=== PATIENT | female | born 1975 | race Caucasian/White ===

== ENCOUNTER 2017-02-08 12:17 | Emergency (ER) | payer OTHER ==
--- NOTE | 2017-02-08 13:29 | ED ORDER SUMMARY ---
..... Patient: GAVIN FORREST OrderSheet [facility] VisitID: [id number] [address] [place] [address] 41y, F Registration Date/Time: 02/08/2017 ORDER SHEET Weight: 100.2 kg (measured) Allergies: No Known Drug Allergy GENERAL ORDERS: MEDICATION ORDERS: Fluorescein Eye Strips 1 strips (NOW) (12:46 02/08/2017 Raeann Moore) (Ack 13:49 DDean R.N.) (14:04 EHassan R.N.) Proparacaine Eye Drops (Solution 0.5 %) 2 drops (place at bedside) (12:46 02/08/2017 Raeann Moore) (Ack 13:49 DDean R.N.) (13:58 EHassan R.N.) IV FLUIDS: ORDER SHEET NOTES: [Electronically signed by Micaela Javed R.N. (14:06 02/08/2017)] [Electronically signed by Gianni Chan Dr. (23:22 02/09/2017)] [Electronically locked/signed by Micaela Javed R.N. (14:06 02/08/2017)]
--- NOTE | 2017-02-08 13:29 | ED CLINICAL REPORT ---
Clinical Report - Physicians/Mid Levels [facility] [address] [place] [address] 02/08/2017 12:17 Patient: GAVIN FORREST Time Seen: 1245; initial patient contact. Arrived- By private vehicle. Historian- patient. HISTORY OF PRESENT ILLNESS Chief Complaint: EYE REDNESS and IRRITATION. This started yesterday, is characterized as severe and has been constant and is still present. The patient did not sustain an injury. This occurred at home. Not injured from contact lenses. No direct trauma to the eyes. No chemical exposure, suspected foreign body in eye or UV light exposure. Eye discomfort, burning, redness and discharge. No double vision, decreased vision or loss of vision. Patient also notes other injury (none). REVIEW OF SYSTEMS No fever. All systems otherwise negative, except as recorded above. PAST HISTORY See nurses notes. Tetanus immunization status is up-to-date. Medications: Omeprazole Oral. Allergies: No Known Drug Allergy. ADDITIONAL NOTES The nursing notes have been reviewed. PHYSICAL EXAM Vital Signs: 02/08/2017 12:45 BP: 120/84. HR: 78. RR: 16. O2 saturation: 98%. Temp: 98.2 F. Pain level now: 6/10. Appearance: Alert. HEENT: Ears normal. Nose normal. Pharynx normal. Head appears normal to external inspection. Eyes: Pupils equal, round and reactive to light. Accommodation normal. negative chani's sign. no dendritic pattern. no abrassions. no FB. normal lids, lashes, and lacrimals. bilateral conjunctival injection. Rt Eye: Pupil 3mm. Lt Eye: Pupil 3mm. Neck: Neck supple. Normal inspection. CVS: Normal heart rate and rhythm. Heart sounds normal. Respiratory: No respiratory distress. Breath sounds normal. Abdomen: Nontender. No organomegaly. : Normal genitalia. Skin: Skin rash (mild macular papular rash to the upper extremities. blanchable. slightly raised. does not involve the palms or soles. no MM involvement.). PROGRESS AND PROCEDURES Course of Care: THE patient is a pleasant 41-year-old female patient of revised irritation to the eyes bilaterally as well as a rash. Rash is located in the upper extremities. No signs of desquamation. Only one Mucous membrane visible. No concern for toxic epidermal necolysis or Sol Johnsons at this time. patient reports significant improvement with these symptoms while here in the emergency department. No signs of hypopyon or Iritis. Patient is nontoxic. No signs of anaphylaxis. Had a discussion with the patient in regards to neurolytic or and topical ophthalmic analgesia. Recommended patient only use this if absolutely neededgiven the risks and benefits of this medication. Patient is agreeable to treatment plan. We'll also have the patient on erythromycin eye ointment antibiotics. Patient is agreeable to the treatment and plan. Discussed with the patient workup here in emergency department: Diagnosis, home care, follow-up, and return precautions. QUESTIONS HAVE BEEN ANSWERED. THE PATIENT EXPRESSED UNDERSTANDING OF THESE INSTRUCTIONS AND WAS GIVEN TO THEM. Disposition: Discharged. Condition: good. CLINICAL IMPRESSION 02/08/2017 12:45 BP: 120/84. HR: 78. RR: 16. O2 saturation: 98%. Temp: 98.2 F. Pain level now: 6/10. Blood pressure normal. Oxygen saturation normal. Atopic conjunctivitis of the right eye and left eye. INSTRUCTIONS Warnings: GENERAL WARNINGS: Return or contact your physician immediately if your condition worsens or changes unexpectedly, if not improving as expected, or if other problems arise. Specifically return if pain, vomiting, bleeding, breathing difficulty or fever. Your Current Medications: CONTINUE TAKING THE FOLLOWING MEDICATIONS: Omeprazole Oral. Prescription Medications: Erythromycin ophthalmic ointment 0.5% : apply 0.5 inch to inner aspect of the lower lid on the affected eye every 4 hours while awake for 7 days. Dispense three and one half (3.5) grams. No refill. Follow-up: Return to the emergency department as needed. Follow up with your doctor in three days. Reason for referral: recheck today's concerns. Screening today revealed the patient's blood pressure to be in the normal range. The patient should follow up with a primary care provider for blood pressure management. Understanding of the discharge instructions verbalized by patient. Follow-up with: Kavita Velasquez MD, Ophthalmology, [facility], [address] [place] [address] - [address], [place] [address] Follow up in three days. Reason for referral: recheck today's concerns. Summary of care provided to patient via paper. (Electronically signed by Gianni Chan Dr. 02/09/2017 23:22)
--- NOTE | 2017-02-08 13:29 | ED CLINICAL REPORT ---
Clinical Report - Physicians/Mid Levels [facility] [address] [place] [address] 02/08/2017 12:17 Patient: GAVIN FORREST Time Seen: 1245; initial patient contact. Arrived- By private vehicle. Historian- patient. HISTORY OF PRESENT ILLNESS Chief Complaint: EYE REDNESS and IRRITATION. This started yesterday, is characterized as severe and has been constant and is still present. The patient did not sustain an injury. This occurred at home. Not injured from contact lenses. No direct trauma to the eyes. No chemical exposure, suspected foreign body in eye or UV light exposure. Eye discomfort, burning, redness and discharge. No double vision, decreased vision or loss of vision. Patient also notes other injury (none). REVIEW OF SYSTEMS No fever. All systems otherwise negative, except as recorded above. PAST HISTORY See nurses notes. Tetanus immunization status is up-to-date. Medications: Omeprazole Oral. Allergies: No Known Drug Allergy. ADDITIONAL NOTES The nursing notes have been reviewed. PHYSICAL EXAM Vital Signs: 02/08/2017 12:45 BP: 120/84. HR: 78. RR: 16. O2 saturation: 98%. Temp: 98.2 F. Pain level now: 6/10. Appearance: Alert. HEENT: Ears normal. Nose normal. Pharynx normal. Head appears normal to external inspection. Eyes: Pupils equal, round and reactive to light. Accommodation normal. negative chani's sign. no dendritic pattern. no abrassions. no FB. normal lids, lashes, and lacrimals. bilateral conjunctival injection. Rt Eye: Pupil 3mm. Lt Eye: Pupil 3mm. Neck: Neck supple. Normal inspection. CVS: Normal heart rate and rhythm. Heart sounds normal. Respiratory: No respiratory distress. Breath sounds normal. Abdomen: Nontender. No organomegaly. : Normal genitalia. Skin: Skin rash (mild macular papular rash to the upper extremities. blanchable. slightly raised. does not involve the palms or soles. no MM involvement.). PROGRESS AND PROCEDURES Course of Care: THE patient is a pleasant 41-year-old female patient of revised irritation to the eyes bilaterally as well as a rash. Rash is located in the upper extremities. No signs of desquamation. Only one Mucous membrane visible. No concern for toxic epidermal necolysis or Sol Johnsons at this time. patient reports significant improvement with these symptoms while here in the emergency department. No signs of hypopyon or Iritis. Patient is nontoxic. No signs of anaphylaxis. Had a discussion with the patient in regards to neurolytic or and topical ophthalmic analgesia. Recommended patient only use this if absolutely neededgiven the risks and benefits of this medication. Patient is agreeable to treatment plan. We'll also have the patient on erythromycin eye ointment antibiotics. Patient is agreeable to the treatment and plan. Discussed with the patient workup here in emergency department: Diagnosis, home care, follow-up, and return precautions. QUESTIONS HAVE BEEN ANSWERED. THE PATIENT EXPRESSED UNDERSTANDING OF THESE INSTRUCTIONS AND WAS GIVEN TO THEM. Disposition: Discharged. Condition: good. CLINICAL IMPRESSION 02/08/2017 12:45 BP: 120/84. HR: 78. RR: 16. O2 saturation: 98%. Temp: 98.2 F. Pain level now: 6/10. Blood pressure normal. Oxygen saturation normal. Atopic conjunctivitis of the right eye and left eye. INSTRUCTIONS Warnings: GENERAL WARNINGS: Return or contact your physician immediately if your condition worsens or changes unexpectedly, if not improving as expected, or if other problems arise. Specifically return if pain, vomiting, bleeding, breathing difficulty or fever. Your Current Medications: CONTINUE TAKING THE FOLLOWING MEDICATIONS: Omeprazole Oral. Prescription Medications: Erythromycin ophthalmic ointment 0.5% : apply 0.5 inch to inner aspect of the lower lid on the affected eye every 4 hours while awake for 7 days. Dispense three and one half (3.5) grams. No refill. Follow-up: Return to the emergency department as needed. Follow up with your doctor in three days. Reason for referral: recheck today's concerns. Screening today revealed the patient's blood pressure to be in the normal range. The patient should follow up with a primary care provider for blood pressure management. Understanding of the discharge instructions verbalized by patient. Follow-up with: Kavita Velasquez MD, Ophthalmology, [facility], [address] [place] [address] - [address], [place] [id number] Follow up in three days. Reason for referral: recheck today's concerns. Summary of care provided to patient via paper. (Electronically signed by Gianni Chan Dr. 02/09/2017 23:22)
--- NOTE | 2017-02-08 13:29 | ED NURSING NOTES ---
Clinical Report - Nurses [facility] [address] [place] [address] 02/08/2017 12:17 Patient: GAVIN FORREST TRIAGE Triage time 1245 PM. Acuity: LEVEL 5. Chief Complaint: REDNESS and PAIN TO RIGHT EYE. REDNESS and PAIN TO LEFT EYE. Alert. No acute distress. SEPSIS SCREEN: Sepsis Screen. Negative (no infection suspected/documented). VISUAL ACUITY: Visual acuity performed without corrective lenses: left eye 20/25; right eye 20/30; both eyes 20/30. --12:58 Micaela Javed R.N. 12:45 02/08/17. BP: 120/84 (regular adult cuff) taken on the left arm, while sitting. HR: 78. RR: 16. O2 saturation: 98% on room air. Temp: 98.2 F. Pain level now: 03/03. --12:58 Micaela Javed R.N. Weight: 100.2 kg measured. Height/Length: 61 inches Per Patient. BMI: 41.8. --12:45 Micaela Javed R.N. Medications Omeprazole Oral. --12:49 Micaela Javed R.N. Allergies No Known Drug Allergy. --12:49 Micaela Javed R.N. Medication/allergy information source: the patient. --12:58 Micaela Javed R.N. History Arrived by private vehicle. Historian: patient and family. Accompanied by family. Primary physician (None). ( Pt states yesterday morning felt her eyes were bothering her, almost like she had "sand in them" it progressively got worst with rash, around eyes and face, also admits to having drainage "green, yellowish color, moderate amount" Pt denies being exposed to anything or using new products. Denies fever, trouble breathing or swallowing.). This started yesterday. She did not sustain an injury. She has had eye discomfort, blurred vision and decreased vision. She has had moderate eye irritation involving the right eye and left eye. It has been associated with redness and discharge. She has had a moderate amount of thick, watery and yellow discharge from the right eye and left eye. Treatment AUDIOLOGY TECHNICIAN: None. PAST MEDICAL HX: Immunizations: up-to-date. SOCIAL HX: Smoker- current status unknown. Occasional alcohol use. No drug use. No infectious disease exposure. ABUSE ASSESSMENT: No report of abuse. SELF HARM ASSESSMENT: A self harm assessment was performed. The patient answered "no" to the question "Do you have thoughts of harming or killing yourself?" and "Have you recently had thoughts about harming or killing others?". FALL RISK ASSESSMENT: Fall risk assessment completed. No fall risk identified. NUTRITIONAL RISK ASSESSMENT: The nutritional risk assessment revealed no deficiencies. FUNCTIONAL ASSESSMENT: Functional assessment: no impairments noted. LEARNING NEEDS ASSESSMENT: The learning needs assessment revealed no barriers. SKIN INTEGRITY ASSESSMENT: Skin integrity risk assessment completed. No skin integrity risk identified. --12:58 Micaela Javed R.N. PROBLEMS: Muscle Strain, Lower Extremity. Abdominal Pain. Contusion. Gastroenteritis. Cellulitis. "back tumor benign". Endometriosis. Ovarian Cyst. Gastroesophageal Reflux Disease. Diabetes Mellitus. Corneal Abrasion. Lifestyle / Substance Problems. URI. Myofascial Strain. --12:50 Micaela Javed R.N. ADDITIONAL SURGERIES: Back Surgery. . Endoscopy. Hysterectomy. Laparoscopy. Oophorectomy. Previous Abdominal Surgery. Tonsillectomy. --12:50 Micaela Javed R.N. Interventions ID band on patient. --12:58 Micaela Javed R.N. PHYSICAL ASSESSMENT Ambulatory to room. GENERAL / NEURO / PSYCH: Not alert. Appears in pain. Pupillary exam: Right pupil 2mm, round and briskly reactive to light directly. Left pupil: 2mm, round and briskly reactive to light directly. HEENT: Photophobia present. Mouth inspection within normal limits. RESPIRATORY: Respirations not labored. CVS: Capillary refill less than 2 seconds. SKIN: Skin is warm and dry. Normal skin turgor. --12:59 Micaela Javed R.N. NURSING PROGRESS NOTES The initial plan of care for this patient has been created This plan of care was discussed with the patient. Reassurance given. Patient identifiers checked. Call light placed in reach. Side rails up. Patient ready for evaluation- ED physician notified. --12:59 Micaela Javed R.N. 13:33 02/08/2017 Proparacaine Eye Drops 2 drop given. Given in both eyes. Allergies verified and confirmed 5 rights. (Done by Dr. Morris). --13:58 Micaela Javed R.N. 13:39 02/08/2017 FLUORESCEIN Opth soln Opthalmic solution 1 Strip given. Given in the right eye and both eyes. Allergies verified and confirmed 5 rights. (DOne by Dr. Morris). --14:04 Micaela Javed R.N. DISPOSITION / DISCHARGE Departure time: 1405 PM. Condition at departure: improved and stable. The goals identified in the patient's plan of care were met. No learning barriers present. Discharge instructions provided and reviewed with the patient and parent. Reviewed medication(s) side effects, precautions, dosing and course information. Prescription(s) given to the patient. Treatments reviewed (eye care). Reviewed referral to an brood station manager for followup. Patient verbalized understanding. Written instructions provided in Portuguese. ( eye acuity did not change, pt states feeling "better"). The patient was discharged by the physician. She was discharged home and accompanied by parent. She left the Emergency Department ambulatory and via private vehicle. Parent driving. FALL RISK ASSESSMENT: Fall risk assessment completed. No fall risk identified. MIGUEL COMA SCORE: Miguel Coma Scale: 15- eyes open spontaneously (4); best verbal response- oriented x 4 (5); best motor response- obeys commands (6). --14:06 Micaela Javed R.N. 14:00 02/08/17. BP: 148/58. HR: 95. RR: 14. O2 saturation: 98% on room air. Temp: 98.3 F (oral). Pain level now: 01/01. --14:06 Micaela Javed R.N. Locked/Released at 02/08/2017 14:06 by Micaela Javed R.N.
--- NOTE | 2017-02-08 13:29 | ED ORDER SUMMARY ---
..... Patient: GAVIN FORREST OrderSheet [facility] [place] [facility] VisitID: [id number] [address] [place] [address] 41y, F Registration Date/Time: 02/08/2017 ORDER SHEET Weight: 100.2 kg (measured) Allergies: No Known Drug Allergy GENERAL ORDERS: MEDICATION ORDERS: Fluorescein Eye Strips 1 strips (NOW) (12:46 02/08/2017 Raeann Moore) (Ack 13:49 DDean R.N.) (14:04 EHassan R.N.) Proparacaine Eye Drops (Solution 0.5 %) 2 drops (place at bedside) (12:46 02/08/2017 Raeann Moore) (Ack 13:49 DDean R.N.) (13:58 EHassan R.N.) IV FLUIDS: ORDER SHEET NOTES: [Electronically signed by Micaela Javed R.N. (14:06 02/08/2017)] [Electronically signed by Gianni Chan Dr. (23:22 02/09/2017)] [Electronically locked/signed by Micaela Javed R.N. (14:06 02/08/2017)]
--- NOTE | 2017-02-09 23:22 | ED MAR SUMMARY ---
..... Medication Administration Record [facility] [address] [place] [address] Patient: GAVIN FORREST Visit ID: [id number] 41y, F Weight: 100.2 kg Height/Length: 61 in BMI: 41.8 ALLERGIES: No Known Drug Allergy Given 13:33 02/08/2017 Micaela Javed, R.N. Medication Administered: PROPARACAINE [EYE DROPS], Dose: 2 drop Eye Drops. Medication Ordered: Proparacaine Eye Drops (Solution 0.5 %) 2 drops (place at bedside). Given 13:39 02/08/2017 Micaela Javed, R.N. Medication Administered: FLUORESCEIN [EYE STRIPS], Dose: 1 Strip Opthalmic solution Opth soln. Medication Ordered: Fluorescein Eye Strips 1 strips (NOW).
--- NOTE | 2017-02-09 23:22 | ED DISCHARGE INSTRUCTIONS ---
Patient: GAVIN FORREST General Instructions [facility] VisitID: [id number] [address] [place] [id number] 41y, F Registration Date/Time: 02/08/2017 02/08/2017 12:45 BP: 120/84. HR: 78. RR: 16. O2 saturation: 98%. Temp: 98.2 F. Pain level now: 6/10. Blood pressure normal. Oxygen saturation normal. Atopic conjunctivitis of the right eye and left eye. INSTRUCTIONS Warnings: GENERAL WARNINGS: Return or contact your physician immediately if your condition worsens or changes unexpectedly, if not improving as expected, or if other problems arise. Specifically return if pain, vomiting, bleeding, breathing difficulty or fever. Your Current Medications: CONTINUE TAKING THE FOLLOWING MEDICATIONS: Omeprazole Oral. Prescription Medications: Erythromycin ophthalmic ointment 0.5% : apply 0.5 inch to inner aspect of the lower lid on the affected eye every 4 hours while awake for 7 days. Dispense three and one half (3.5) grams. No refill. Follow-up: Return to the emergency department as needed. Follow up with your doctor in three days. Reason for referral: recheck today's concerns. Screening today revealed the patient's blood pressure to be in the normal range. The patient should follow up with a primary care provider for blood pressure management. Understanding of the discharge instructions verbalized by patient. Follow-up with: Kavita Velasquez MD, Ophthalmology, [facility], [address] [place] [address] - [address] [address] Follow up in three days. Reason for referral: recheck today's concerns. Summary of care provided to patient via paper. ADDITIONAL INFORMATION Conjunctivitis, Allergic Allergic Conjunctivitis is a reaction to dust or pollen in the air. This causes itching and redness in the membranes of the eyelids. There may be swelling of the lids, redness, and a gritty or scratchy feeling in the eye. Home Care: Eye drops may be prescribed to reduce itching and redness. Use these as directed. Otherwise, Visine, Vasocon or other [id number] decongestant eye drops may be used. Apply a cool compress (towel soaked in cool water) to the affected eye 3-4 times a day to reduce swelling and itching. It is common to have mucus drainage during the night causing the eyelids to become crusted by morning. Use a warm wet cloth to wipe this away. You may also use saline irrigating solution or artificial tears to rinse away mucus inside the eye. Do not patch the eye. You may use acetaminophen (Tylenol) or ibuprofen (Motrin, Advil) to control pain, unless another medicine was prescribed. [ NOTE: If you have chronic liver or kidney disease or ever had a stomach ulcer or GI bleeding, talk with your doctor before using these medicines.] Do not wear contact lenses until your eyes have healed and all symptoms are gone. Follow Up with your doctor or this facility as directed, or if there has not been improvement within five days. Get Prompt Medical Attention if any of the following occur: Increased swelling of the eyelid New or worsening drainage from the eye Increasing redness around the eye Facial swelling Erythromycin Eye ointment What is this medicine? ERYTHROMYCIN (ananya gates) is a macrolide antibiotic. It is used to treat bacterial eye infections. It also prevents a certain type of eye infection that can occur in some babies. How should I use this medicine? This medicine is only for use in the eye. Follow the directions on the prescription label. Wash hands before and after use. Tilt your head back slightly and pull your lower eyelid down with your index finger to form a pouch. Try not to touch the tip of the tube, to your eye, fingertips, or any other surface. Squeeze the end of the tube to apply a thin layer of the ointment to the inside of the lower eyelid. Close the eye gently to spread the ointment. Your vision may blur for a few minutes. Use your doses at regular intervals. Do not use your medicine more often than directed. Finish the full course prescribed by your doctor or health home health caregiver even if you think your condition is better. Do not stop using except on the advice of your doctor or health home health caregiver. Talk to your cco & president regarding the use of this medicine in children. Special care may be needed. What side effects may I notice from receiving this medicine? Side effects that you should report to your doctor or health home health caregiver as soon as possible: allergic reactions like skin rash, itching or hives, swelling of the face, lips, or tongue burning, stinging, or itching of the eyes or eyelids changes in vision redness, swelling, or pain What may interact with this medicine? Interactions are not expected. Do not use any other eye products without telling your doctor or health home health caregiver. What if I miss a dose? If you miss a dose, use it as soon as you can. If it is almost time for your next dose, use only that dose. Do not use double or extra doses. Where should I keep my medicine? Keep out of the reach of children. Store at room temperature between 15 and 30 degrees C (59 and 86 degrees F). Do not freeze. Throw away any unused ointment after the expiration date. What should I tell my health care provider before I take this medicine? if you have an unusual or allergic reaction to erythromycin, foods, dyes, or preservatives or trying to get breast-feeding What should I watch for while using this medicine? Tell your doctor or health home health caregiver if your symptoms do not improve in 2 to 3 days. You have been given the following additional information: Conjunctivitis, Allergic Erythromycin Eye ointment (Electronically signed by Gianni Chan Dr. 02/09/2017 23:22)
--- NOTE | 2017-02-09 23:22 | ED MED RECONCILIATION SUMMARY ---
Patient: GAVIN FORREST Medication Reconciliation Report [facility] VisitID: [id number] [address] [place] [address] 41y, F Registration Date/Time: 02/08/2017 Weight: 100.2 kg Height/Length: 61 in. BMI: 41.8 ALLERGIES: No Known Drug Allergy The patient's Home Medications are listed below: CONTINUE TAKING THE FOLLOWING MEDICATIONS: Omeprazole Oral The source(s) of the original Home Medication information: patient The following Medications were given to the patient in the Emergency Department: Proparacaine [Eye Drops] Eye Drops 2 drop, administered: 02/08/2017 1:33:00 PM FLUORESCEIN [EYE STRIPS] Opth soln 1 Strip, administered: 02/08/2017 1:39:00 PM The following Medications were prescribed to the patient: Erythromycin ophthalmic ointment 0.5% : apply 0.5 inch to inner aspect of the lower lid on the affected eye every 4 hours while awake for 7 days. Dispense three and one half (3.5) grams. No refill. -- Gianni Chan Dr.
--- NOTE | 2017-02-09 23:22 | ED MED RECONCILIATION SUMMARY ---
Patient: GAVIN FORREST Medication Reconciliation Report [facility] VisitID: [id number] [address] [place] [address] 41y, F Registration Date/Time: 02/08/2017 Weight: 100.2 kg Height/Length: 61 in. BMI: 41.8 ALLERGIES: No Known Drug Allergy The patient's Home Medications are listed below: CONTINUE TAKING THE FOLLOWING MEDICATIONS: Omeprazole Oral The source(s) of the original Home Medication information: patient The following Medications were given to the patient in the Emergency Department: Proparacaine [Eye Drops] Eye Drops 2 drop, administered: 02/08/2017 1:33:00 PM FLUORESCEIN [EYE STRIPS] Opth soln 1 Strip, administered: 02/08/2017 1:39:00 PM The following Medications were prescribed to the patient: Erythromycin ophthalmic ointment 0.5% : apply 0.5 inch to inner aspect of the lower lid on the affected eye every 4 hours while awake for 7 days. Dispense three and one half (3.5) grams. No refill. -- Gianni Chan Dr.
--- NOTE | 2017-02-09 23:22 | ED DISCHARGE INSTRUCTIONS ---
Patient: GAVIN FORREST General Instructions [facility] VisitID: [id number] [address] [place] [id number] 41y, F Registration Date/Time: 02/08/2017 02/08/2017 12:45 BP: 120/84. HR: 78. RR: 16. O2 saturation: 98%. Temp: 98.2 F. Pain level now: 6/10. Blood pressure normal. Oxygen saturation normal. Atopic conjunctivitis of the right eye and left eye. INSTRUCTIONS Warnings: GENERAL WARNINGS: Return or contact your physician immediately if your condition worsens or changes unexpectedly, if not improving as expected, or if other problems arise. Specifically return if pain, vomiting, bleeding, breathing difficulty or fever. Your Current Medications: CONTINUE TAKING THE FOLLOWING MEDICATIONS: Omeprazole Oral. Prescription Medications: Erythromycin ophthalmic ointment 0.5% : apply 0.5 inch to inner aspect of the lower lid on the affected eye every 4 hours while awake for 7 days. Dispense three and one half (3.5) grams. No refill. Follow-up: Return to the emergency department as needed. Follow up with your doctor in three days. Reason for referral: recheck today's concerns. Screening today revealed the patient's blood pressure to be in the normal range. The patient should follow up with a primary care provider for blood pressure management. Understanding of the discharge instructions verbalized by patient. Follow-up with: Kavita Velasquez MD, Ophthalmology, [facility], [address] [place] [address] - [address] [address] Follow up in three days. Reason for referral: recheck today's concerns. Summary of care provided to patient via paper. ADDITIONAL INFORMATION Conjunctivitis, Allergic Allergic Conjunctivitis is a reaction to dust or pollen in the air. This causes itching and redness in the membranes of the eyelids. There may be swelling of the lids, redness, and a gritty or scratchy feeling in the eye. Home Care: Eye drops may be prescribed to reduce itching and redness. Use these as directed. Otherwise, Visine, Vasocon or other ykrv-[id number] decongestant eye drops may be used. Apply a cool compress (towel soaked in cool water) to the affected eye 3-4 times a day to reduce swelling and itching. It is common to have mucus drainage during the night causing the eyelids to become crusted by morning. Use a warm wet cloth to wipe this away. You may also use saline irrigating solution or artificial tears to rinse away mucus inside the eye. Do not patch the eye. You may use acetaminophen (Tylenol) or ibuprofen (Motrin, Advil) to control pain, unless another medicine was prescribed. [ NOTE: If you have chronic liver or kidney disease or ever had a stomach ulcer or GI bleeding, talk with your doctor before using these medicines.] Do not wear contact lenses until your eyes have healed and all symptoms are gone. Follow Up with your doctor or this facility as directed, or if there has not been improvement within five days. Get Prompt Medical Attention if any of the following occur: Increased swelling of the eyelid New or worsening drainage from the eye Increasing redness around the eye Facial swelling Erythromycin Eye ointment What is this medicine? ERYTHROMYCIN (ananya gates) is a macrolide antibiotic. It is used to treat bacterial eye infections. It also prevents a certain type of eye infection that can occur in some babies. How should I use this medicine? This medicine is only for use in the eye. Follow the directions on the prescription label. Wash hands before and after use. Tilt your head back slightly and pull your lower eyelid down with your index finger to form a pouch. Try not to touch the tip of the tube, to your eye, fingertips, or any other surface. Squeeze the end of the tube to apply a thin layer of the ointment to the inside of the lower eyelid. Close the eye gently to spread the ointment. Your vision may blur for a few minutes. Use your doses at regular intervals. Do not use your medicine more often than directed. Finish the full course prescribed by your doctor or health director of career services even if you think your condition is better. Do not stop using except on the advice of your doctor or health director of career services. Talk to your structural steel shop supervisor regarding the use of this medicine in children. Special care may be needed. What side effects may I notice from receiving this medicine? Side effects that you should report to your doctor or health director of career services as soon as possible: allergic reactions like skin rash, itching or hives, swelling of the face, lips, or tongue burning, stinging, or itching of the eyes or eyelids changes in vision redness, swelling, or pain What may interact with this medicine? Interactions are not expected. Do not use any other eye products without telling your doctor or health director of career services. What if I miss a dose? If you miss a dose, use it as soon as you can. If it is almost time for your next dose, use only that dose. Do not use double or extra doses. Where should I keep my medicine? Keep out of the reach of children. Store at room temperature between 15 and 30 degrees C (59 and 86 degrees F). Do not freeze. Throw away any unused ointment after the expiration date. What should I tell my health care provider before I take this medicine? if you have an unusual or allergic reaction to erythromycin, foods, dyes, or preservatives or trying to get breast-feeding What should I watch for while using this medicine? Tell your doctor or health director of career services if your symptoms do not improve in 2 to 3 days. You have been given the following additional information: Conjunctivitis, Allergic Erythromycin Eye ointment (Electronically signed by Gianni Chan Dr. 02/09/2017 23:22)
--- NOTE | 2017-02-09 23:22 | ED MAR SUMMARY ---
..... Medication Administration Record [facility] [address] [place] [address] Patient: GAVIN FORREST Visit ID: [id number] 41y, F Weight: 100.2 kg Height/Length: 61 in BMI: 41.8 ALLERGIES: No Known Drug Allergy Given 13:33 02/08/2017 Micaela Javed, R.N. Medication Administered: PROPARACAINE [EYE DROPS], Dose: 2 drop Eye Drops. Medication Ordered: Proparacaine Eye Drops (Solution 0.5 %) 2 drops (place at bedside). Given 13:39 02/08/2017 Micaela Javed, R.N. Medication Administered: FLUORESCEIN [EYE STRIPS], Dose: 1 Strip Opthalmic solution Opth soln. Medication Ordered: Fluorescein Eye Strips 1 strips (NOW).
== END 2017-02-08 14:05 | disposition home or self-care (01) ==
LOC: ED SRH 12:17
DX: H10.13 Acute atopic conjunctivitis, bilateral (principal); E11.9 Type 2 diabetes mellitus without complications; K21.9 Gastro-esophageal reflux disease without esophagitis; Z79.899 Other long term (current) drug therapy